=== PATIENT | female | born 1940 | race African-American/Black ===

== ENCOUNTER 2017-04-29 22:17 | Inpatient (IN) | payer MEDICARE, OTHER ==
[~2017-04-29] VITALS: Ht 172.7 cm; Wt 85.7 kg
--- NOTE | 2017-04-29 22:30 | NUR ---
INFORMED AMBULANCE TRANSPORT TEAM THAT ORIGINAL 5150 HOLD WAS NOT PRESENT. AMBULANCE TRANSPORT TEAM LEFT WITH PATIENT TO GET ORIGINAL 5150 HOLD WITH INFORMING ANY ER STAFF MEMBERS
--- NOTE | 2017-04-29 23:40 | NUR ---
AMBULANCE RETURNED WITH PATIENT AT THIS TIME.
--- NOTE | 2017-04-29 23:43 | NUR ---
AMBULANCE TRANSPORT TEAM BACK FROM [facility] WITH PATIENT AND ORIGINAL 5150 HOLD
[2017-04-30] MEDS ORDERED: CLON0.3T PO (00:01)
[2017-04-30] MEDS ORDERED: ALLO100T PO (00:01)
[2017-04-30] MEDS ORDERED: LINA5TAB PO (00:01)
[2017-04-30] MEDS ORDERED: LATA2.5D7 OP (00:01)
[2017-04-30] MEDS ORDERED: CHOL100045 PO (00:01)
[2017-04-30] MEDS ORDERED: HYDR100T27 PO (00:01)
[2017-04-30] MEDS ORDERED: TACR1CAP PO (00:01)
[2017-04-30] MEDS ORDERED: AMLO10TA2 PO (00:01)
[2017-04-30] MEDS ORDERED: QUET25TA PO (00:01)
[2017-04-30] MEDS ORDERED: ASPI-605 PO (00:01)
[2017-04-30] MEDS ORDERED: ENOX40DI SQ (00:01)
[2017-04-30] MEDS ORDERED: LABE300T PO (00:01)
[2017-04-30] MEDS ORDERED: LISI40TA4 PO (00:01)
--- NOTE | 2017-04-30 00:15 | NUR ---
MEDICALLY CLEARED BY DR BARROSO
[2017-04-30] MEDS ORDERED: MAG HYDROX/AL HYDROX/SIMETH 30 ML LIQUID UDC PO PRN (01:30)
[2017-04-30] MEDS ORDERED: LORAZEPAM 0.5 MG TABLET PO PRN (01:30)
[2017-04-30] MEDS ORDERED: TEMAZEPAM 7.5 MG CAPSULE PO PRN (01:30)
[2017-04-30] MEDS ORDERED: MAGNESIUM HYDROXIDE 30 ML LIQUID UDC PO PRN (01:30)
--- NOTE | 2017-04-30 01:30 | NUR ---
AT APPROX 0100 ADMITTED 76 YEAR OLD AA FEMALE TO [facility] ON A 5150 HOLD FOR GD. PATIENT LIVES WITH NIECE JUSTIN MCINTOSH, SHE WAS ADMITTED TO [facility] MED/SURG/TELE UNIT ON 04/25/17 DUE TO INCREASED PARANOID AND HALLUCINATION. SHE FEELS IF SOMEONE IS WATCHING HER 28/09. SHE THINKS THAT THERE ARE CAMERAS ALL AROUND HER HOME THAT ARE WATCHING HER. PATIENT WAS MEDICALLY CLEARED AT [facility]. HOLD STARTED ON 04/29/17 AT 1522 AND WILL END ON 05/02/17 AT 1522. PATIENT WAS NOTED A/O X 3. IN NO DISTRESS. SHE WAS CALM AND COOPERATIVE WITH ADMISSION PROCESS. SHE WAS ABLE TO SIGN ADMISSION PAPERS. SKIN WARM, DRY AND INTACT EXCEPT FOR SMALL CIRCULAR ECCHYMOSIS NOTED IN RIGHT ANTECUBITAL ARM. PATIENT PRESENTED WITH A SALINE LOCK LOCATED ON HER LEFT ARM, WHICH WAS REMOVED AT TIME OF ADMISSION. SHE ALSO PRESENTED WITH A SHUNT (AV GRAFT) LOCATED IN HER RIGHT UPPER ARM ANTERIOR ASPECT. IT WAS ALSO NOTED A WELL-HEALED SURGICAL SCAR ON HER RIGHT UPPER QUADRANT AND ANOTHER WELL-HEALED SCAR ON HER LEFT KNEE. PATIENT STARED THAT SHE IS UNABLE TO WALK DUE TO BILATERAL LEG WEAKNESS. PATIENT IS UNDER THE CARE OF DR. BRADSHAW AND DR. DELEON. WILL CONTINUE TO MONITOR CLOSELY.
[2017-04-30 01:51] VITALS: BP 150/66
[2017-04-30 04:25] VITALS: BP 150/66
--- NOTE | 2017-04-30 06:49 | NUR ---
PT SLEPT FOR APPROX 4.30 HRS THROUGH THE NIGHT. BGL WAS DONE, RESULTS 111. PATIENT HAD A SHOWER. SHE IS COMPLIANT WITH ADLs at this time.
[2017-04-30 07:30] VITALS: BP 179/60
--- NOTE | 2017-04-30 07:30 | NUR ---
PT RECEIVED IN BED AWAKE.PT IS [id number].NO C/O PAIN NOTED ,V/S ARE STABLE.BED ALARM ON
[2017-04-30 11:01] VITALS: BP 157/54
--- NOTE | 2017-04-30 14:56 | NUR ---
Firearms Report: Hydropress Operator completed and submitted [employer]arms Report on 04/30/17.
[2017-04-30] MEDS: AMLODIPINE 10 MG TABLET PO SCH (15:07)
[2017-04-30] MEDS: hydrALAZINE HCL 50 MG TABLET PO SCH ×2 (15:11→22:00)
--- NOTE | 2017-04-30 15:43 | NUR ---
Initial DC Plan: Patient currently lives at home with her niece Katrin [[address] [place] [address]; [phone]]. Katrin stated she would like patient to return home upon discharge. SW will follow up with MD, patient, and patient's niece to discuss most appropriate discharge plans. SW will form a safe and proper discharge.
[2017-04-30] MEDS: TACROLIMUS ANHYDROUS 1 MG CAPSULE PO SCH (16:25)
[2017-04-30] MEDS: CLONIDINE HCL 0.3 MG TABLET PO SCH ×2 (16:25→23:00)
[2017-04-30] MEDS: DIVALPROEX SPRINKLE 125 MG CAP.SPRINK PO SCH (20:10)
[2017-04-30] MEDS: LATANOPROST OPHT DROP 2.5 ML BOTTLE EACHEYE SCH (20:10)
[2017-04-30] MEDS: QUETIAPINE FUMARATE 25 MG TABLET PO SCH (20:10)
[2017-04-30 20:23] VITALS: BP 168/53
[2017-04-30 20:40] VITALS: BP 134/44
[2017-05-01] VITALS (7 sets, daily range): BP systolic 149–188; BP diastolic 52–66
[2017-05-01] MEDS: hydrALAZINE HCL 50 MG TABLET PO SCH ×3 (05:47→21:06)
--- NOTE | 2017-05-01 06:25 | NUR ---
GPS: PT SLEPT FOR APPROX 6.30 HRS THROUGH THE NIGHT. ASSISTED WITH ADL'S. B/P 178/62 HR 62,HYDRALAZINE PO GIVEN. WAS.COMPLIANT WITH ADLs. PLEASANT UPON APPROACH.NO AGITATION NOTED. CONTINUE MONITORING FOR SAFETY.
[2017-05-01] MEDS: CLONIDINE HCL 0.3 MG TABLET PO SCH ×4 (06:45→23:10)
[2017-05-01] MEDS: CHOLECALCIFEROL 1,000 UNIT TABLET PO SCH (08:41)
[2017-05-01] MEDS: DIVALPROEX SPRINKLE 125 MG CAP.SPRINK PO SCH ×2 (08:41→20:02)
[2017-05-01] MEDS: TACROLIMUS ANHYDROUS 1 MG CAPSULE PO SCH ×2 (08:41→16:54)
[2017-05-01] MEDS: ALLOPURINOL 100 MG TABLET PO SCH (08:41)
[2017-05-01] MEDS: LINAGLIPTIN 5 MG TABLET PO SCH (08:41)
[2017-05-01] MEDS: ASPIRIN EC 81 MG TABLET.DR PO SCH (08:42)
[2017-05-01] MEDS: LISINOPRIL 20 MG TABLET PO SCH (08:42)
[2017-05-01] MEDS: AMLODIPINE 10 MG TABLET PO SCH (08:42)
[2017-05-01] MEDS ORDERED: Medication Not On Formulary EA (Lisinopril 40 MG) PO SCH (09:00)
[2017-05-01] MEDS: ACETAMINOPHEN 325 MG TABLET PO PRN (15:13)
--- NOTE | 2017-05-01 18:25 | NUR ---
GPS/NSG PATIENT COMPLIANT WITH MEDICATION B/P LAST READING OF 174/60. TEMP OF 99.1 ADDRESSED WITH TYLENOL PRN WITH EFFECTIVE OUTCOME. TEMP AT 1700 99.0 TO BE ENDORSED FOR FOLLOW UP.
[2017-05-01] MEDS: LATANOPROST OPHT DROP 2.5 ML BOTTLE EACHEYE SCH (20:02)
[2017-05-01] MEDS: QUETIAPINE FUMARATE 25 MG TABLET PO SCH (20:02)
[2017-05-01] MEDS: LABETALOL HCL 200 MG TABLET PO SCH (23:30)
[2017-05-02] MEDS ORDERED: LABETALOL HCL 100 MG TABLET ONE ×3 (00:11→06:51)
[2017-05-02] MEDS: hydrALAZINE HCL 50 MG TABLET PO SCH ×3 (05:55→22:03)
--- NOTE | 2017-05-02 06:09 | NUR ---
GPS: REMAIN CALM AND COOPERATIVE WITH MEDICATIONS AND CARE. SLEPT 8:30 HRS THROUGH THE NIGHT.SHOWERED THIS MORNING. B/P 177/62 PULSE 64 HYDRALAZINE 100 MG PO GIVE. CONTINUE MONITORING FOR HIGH BLOOD PRESSURE AND SAFETY.NO BEHAVIOR PROBLEM NOTED.
[2017-05-02] MEDS: LABETALOL HCL 200 MG TABLET PO SCH ×3 (06:53→23:30)
[2017-05-02 07:30] VITALS: BP 164/59
[2017-05-02 08:09] LABS: BASOPHILS % (AUTO) 0.5 % (0.0-2.0); EOSINOPHILS # (AUTO) 0.1 K/uL (0.0-0.7); EOSINOPHILS % (AUTO) 1.5 % (0.0-7.0); HEMATOCRIT 34.8 % (31.2-41.9); HEMOGLOBIN 11.3 g/dL (10.9-14.3); LYMPHOCYTES # (AUTO) 0.9 K/uL (20.0-40.0); MEAN CORPUSCULAR HEMOGLOBIN 27.8 uug (24.7-32.8); MEAN CORPUSCULAR HGB CONC 33 g/dL (32.3-35.6); MEAN CORPUSCULAR VOLUME 85.6 fL (75.5-95.3); MONOCYTES # (AUTO) 0.7 K/uL (2.0-10.0); MONOCYTES % (AUTO) 9.7 % (0.0-11.0); NEUTROPHILS # (AUTO) 5.3 K/uL (1.8-8.9); NEUTROPHILS % (AUTO) 75.3 % (38.5-71.5); PLATELET COUNT (AUTO) 163 K/uL (179-408); RED BLOOD CELL COUNT(AUTO) 4.06 MIL/uL (3.63-4.92); WHITE BLOOD COUNT (AUTO) 7.1 K/uL (3.8-11.8)
[2017-05-02] MEDS: CLONIDINE HCL 0.3 MG TABLET PO SCH ×3 (08:16→23:30)
[2017-05-02] MEDS: DIVALPROEX SPRINKLE 125 MG CAP.SPRINK PO SCH ×2 (08:17→20:14)
[2017-05-02] MEDS: ALLOPURINOL 100 MG TABLET PO SCH (08:17)
[2017-05-02] MEDS: CHOLECALCIFEROL 1,000 UNIT TABLET PO SCH (08:17)
[2017-05-02] MEDS: ASPIRIN EC 81 MG TABLET.DR PO SCH (08:17)
[2017-05-02] MEDS: TACROLIMUS ANHYDROUS 1 MG CAPSULE PO SCH ×2 (08:18→16:22)
[2017-05-02] MEDS: LINAGLIPTIN 5 MG TABLET PO SCH (08:18)
[2017-05-02 08:20] LABS: THYROID STIMULATING HORMONE 3.682 mIU/mL (0.358-3.740)
[2017-05-02] MEDS: LISINOPRIL 20 MG TABLET PO SCH (08:25)
[2017-05-02] MEDS: AMLODIPINE 10 MG TABLET PO SCH (08:25)
[2017-05-02 08:42] LABS: ALANINE AMINOTRANSFERASE 23 U/L (14-59); ALKALINE PHOSPHATASE 72 U/L (50-136); ASPARTATE AMINOTRANSFERASE 17 U/L (15-37); BILIRUBIN,TOTAL 0.4 mg/dL (0.2-1.0); CARBON DIOXIDE 26 mmol/L (21-32); CHLORIDE 107 mmol/L (98-107); CHOLESTEROL 164 mg/dL (<200); CREATININE 1.3 mg/dL (0.6-1.3); GLUCOSE 120 mg/dL (74-106); HDL CHOLESTEROL 50 mg/dL (40-60); MAGNESIUM 2.3 mg/dL (1.8-2.4); PHOSPHOROUS 3.3 mg/dL (2.5-4.9); TOTAL PROTEIN, SERUM 6.9 g/dL (6.4-8.2); TRIGLYCERIDES 68 MG/DL (30-150); UREA NITROGEN, BLOOD 33 mg/dL (7-18)
[2017-05-02] MEDS: Z GUARD REMEDY PASTE 57 GM TUBE TOP SCH ×2 (13:43→20:14)
--- NOTE | 2017-05-02 14:12 | NUR ---
GPS RN NOTE: 1400: PER PATIENT, SHE ONLY WANTED TAKE HYDRALAZINE 75 MG THIS IS WHAT SHE WAS TAKING AT HOME. EXPLAINED TO PT THAT DR PRESCRIBED HER WITH 100MG OF HYDRALAZINE. PT KEPT INSISTING THAT SHE WILL ONLY TAKE 75 MGS HYDRALAZINE. CHARGE NURSE AWARE.
[2017-05-02 15:37] VITALS: BP 124/51
[2017-05-02] MEDS: LATANOPROST OPHT DROP 2.5 ML BOTTLE EACHEYE SCH (20:14)
[2017-05-02] MEDS: QUETIAPINE FUMARATE 25 MG TABLET PO SCH (20:14)
[2017-05-02 20:24] VITALS: BP 120/54
--- NOTE | 2017-05-03 | NUR ---
SCHEDULED 2330 LABETALOL HELD D/T DECREASED DIASTOLIC BP. Pt ASYMPTOMATIC FOR S/S OF HYPOTENSION.
[2017-05-03] MEDS: hydrALAZINE HCL 50 MG TABLET PO SCH ×3 (06:30→22:23)
[2017-05-03] MEDS: CLONIDINE HCL 0.3 MG TABLET PO SCH ×3 (07:01→23:15)
[2017-05-03 07:30] VITALS: BP 113/59
[2017-05-03] MEDS: LABETALOL HCL 200 MG TABLET PO SCH ×2 (07:30→15:30)
[2017-05-03] MEDS: Z GUARD REMEDY PASTE 57 GM TUBE TOP SCH ×2 (08:00→20:01)
[2017-05-03] MEDS: CHOLECALCIFEROL 1,000 UNIT TABLET PO SCH (08:00)
[2017-05-03] MEDS: LINAGLIPTIN 5 MG TABLET PO SCH (08:01)
[2017-05-03] MEDS: ALLOPURINOL 100 MG TABLET PO SCH (08:01)
[2017-05-03] MEDS: AMLODIPINE 10 MG TABLET PO SCH (08:01)
[2017-05-03] MEDS: TACROLIMUS ANHYDROUS 1 MG CAPSULE PO SCH ×2 (08:01→16:06)
[2017-05-03] MEDS: DIVALPROEX SPRINKLE 125 MG CAP.SPRINK PO SCH ×2 (08:01→20:01)
[2017-05-03] MEDS: ASPIRIN EC 81 MG TABLET.DR PO SCH (08:01)
[2017-05-03] MEDS: LISINOPRIL 20 MG TABLET PO SCH (08:02)
[2017-05-03 14:00] VITALS: BP 161/53
[2017-05-03 15:30] VITALS: BP 123/50
[2017-05-03] MEDS: ACETAMINOPHEN 325 MG TABLET PO PRN (19:42)
[2017-05-03 19:49] VITALS: BP 149/50
[2017-05-03] MEDS: LATANOPROST OPHT DROP 2.5 ML BOTTLE EACHEYE SCH (20:00)
[2017-05-03] MEDS: QUETIAPINE FUMARATE 25 MG TABLET PO SCH (20:01)
[2017-05-04] MEDS: LABETALOL HCL 200 MG TABLET PO SCH ×6 (00:17→23:49)
[2017-05-04 01:23] VITALS: BP 127/48
[2017-05-04] MEDS: hydrALAZINE HCL 50 MG TABLET PO SCH ×3 (06:20→22:00)
[2017-05-04] MEDS: CLONIDINE HCL 0.3 MG TABLET PO SCH ×3 (07:04→23:00)
[2017-05-04 08:17] VITALS: BP 131/49
[2017-05-04] MEDS: QUETIAPINE FUMARATE 25 MG TABLET PO SCH ×2 (08:31→20:45)
[2017-05-04] MEDS: AMLODIPINE 10 MG TABLET PO SCH (08:31)
[2017-05-04] MEDS: CHOLECALCIFEROL 1,000 UNIT TABLET PO SCH (08:32)
[2017-05-04] MEDS: DIVALPROEX SPRINKLE 125 MG CAP.SPRINK PO SCH ×2 (08:32→20:45)
[2017-05-04] MEDS: ASPIRIN EC 81 MG TABLET.DR PO SCH (08:32)
[2017-05-04] MEDS: TACROLIMUS ANHYDROUS 1 MG CAPSULE PO SCH ×2 (08:34→16:10)
[2017-05-04] MEDS: LINAGLIPTIN 5 MG TABLET PO SCH (08:34)
[2017-05-04] MEDS: Z GUARD REMEDY PASTE 57 GM TUBE TOP SCH ×2 (08:36→21:56)
[2017-05-04] MEDS: LISINOPRIL 20 MG TABLET PO SCH (08:38)
[2017-05-04] MEDS: ALLOPURINOL 100 MG TABLET PO SCH (08:38)
[2017-05-04 13:07] VITALS: BP 128/46
[2017-05-04 20:28] VITALS: BP 130/49
[2017-05-04] MEDS: LATANOPROST OPHT DROP 2.5 ML BOTTLE EACHEYE SCH (20:44)
--- NOTE | 2017-05-04 22:00 | NUR ---
RECEIVED PT IN HER ROOM. SHE WAS NOTED A/O X 3. PLEASANT AND COOPERATIVE. DEPRESSED MOOD, BLUNTED AFFECT. SHE IS COMPLIANT EITH MEDICATION REGIMENT. APRESOLINE 100MG WAS HELD DUE TO PT LOW BP: 56 BPM. WILL CONTINUE TO MONITOR.
--- NOTE | 2017-05-04 23:45 | NUR ---
PATIENT REFUSED CATAPRES 0.3MG PO; HOWEVER SHE TOOK LABETALOL. V/S STABLE AT THIS TIME. WILL CONTINUE TO MONITOR. NO S/S OF HYPERTENSION NOTED AT THIS TIME.
[2017-05-05] MEDS: hydrALAZINE HCL 50 MG TABLET PO SCH ×3 (05:55→22:40)
[2017-05-05] MEDS: CLONIDINE HCL 0.3 MG TABLET PO SCH ×3 (07:00→23:43)
[2017-05-05 07:30] VITALS: BP 142/51
[2017-05-05 07:31] LABS: BASOPHILS % (AUTO) 0.9 % (0.0-2.0); EOSINOPHILS # (AUTO) 0.1 K/uL (0.0-0.7); EOSINOPHILS % (AUTO) 2.3 % (0.0-7.0); HEMATOCRIT 31.7 % (31.2-41.9); HEMOGLOBIN 10.4 g/dL (10.9-14.3); LYMPHOCYTES % (AUTO) 20.8 % (20.5-51.5); MEAN CORPUSCULAR HEMOGLOBIN 27.8 uug (24.7-32.8); MEAN CORPUSCULAR HGB CONC 33 g/dL (32.3-35.6); MEAN CORPUSCULAR VOLUME 84.9 fL (75.5-95.3); MONOCYTES # (AUTO) 0.6 K/uL (2.0-10.0); MONOCYTES % (AUTO) 12.3 % (0.0-11.0); NEUTROPHILS # (AUTO) 3.1 K/uL (1.8-8.9); NEUTROPHILS % (AUTO) 63.7 % (38.5-71.5); PLATELET COUNT (AUTO) 162 K/uL (179-408); RED BLOOD CELL COUNT(AUTO) 3.74 MIL/uL (3.63-4.92); WHITE BLOOD COUNT (AUTO) 4.8 K/uL (3.8-11.8)
[2017-05-05 07:48] LABS: ALANINE AMINOTRANSFERASE 20 U/L (14-59); ALKALINE PHOSPHATASE 74 U/L (50-136); ASPARTATE AMINOTRANSFERASE 12 U/L (15-37); BILIRUBIN,TOTAL 0.4 mg/dL (0.2-1.0); CARBON DIOXIDE 24 mmol/L (21-32); CHLORIDE 107 mmol/L (98-107); CREATININE 1.4 mg/dL (0.6-1.3); GLUCOSE 98 mg/dL (74-106); POTASSIUM 5.1 mmol/L (3.5-5.1); TOTAL PROTEIN, SERUM 6.7 g/dL (6.4-8.2); UREA NITROGEN, BLOOD 37 mg/dL (7-18); VALPROIC ACID 34 ug/mL (50-100)
[2017-05-05] MEDS: ALLOPURINOL 100 MG TABLET PO SCH (08:09)
[2017-05-05] MEDS: AMLODIPINE 10 MG TABLET PO SCH (08:09)
[2017-05-05] MEDS: ASPIRIN EC 81 MG TABLET.DR PO SCH (08:09)
[2017-05-05] MEDS: CHOLECALCIFEROL 1,000 UNIT TABLET PO SCH (08:09)
[2017-05-05] MEDS: DIVALPROEX SPRINKLE 125 MG CAP.SPRINK PO SCH ×2 (08:09→20:52)
[2017-05-05] MEDS: LISINOPRIL 20 MG TABLET PO SCH (08:10)
[2017-05-05] MEDS: QUETIAPINE FUMARATE 25 MG TABLET PO SCH ×3 (08:10→20:53)
[2017-05-05] MEDS: LINAGLIPTIN 5 MG TABLET PO SCH (08:13)
[2017-05-05] MEDS: TACROLIMUS ANHYDROUS 1 MG CAPSULE PO SCH ×2 (08:13→17:01)
[2017-05-05] MEDS: Z GUARD REMEDY PASTE 57 GM TUBE TOP SCH ×2 (09:48→21:16)
[2017-05-05] MEDS: LABETALOL HCL 200 MG TABLET PO SCH ×2 (09:57→17:07)
[2017-05-05] MEDS ORDERED: PNEUMOCOCCAL 23-VAL P-SAC VAC 0.5 ML VIAL IM ONE (10:30)
[2017-05-05 15:53] VITALS: BP 143/58
[2017-05-05 20:00] VITALS: BP 130/49
[2017-05-05] MEDS: LATANOPROST OPHT DROP 2.5 ML BOTTLE EACHEYE SCH (20:53)
[2017-05-05 21:09] VITALS: BP 134/69
--- NOTE | 2017-05-05 21:25 | NUR ---
PATIENT RECEIVED IN BED AWAKE, PATIENT CALM , COOPERATIVE. PATIENT COMPLAINT WITH MEDICATION. PATIENT DENIES PARANOIA/DELUSIONS WILL CONTINUE TO MONITOR AND REDIRECT NEEDED. PATIENT HAS FLAT AFFECT. NO AGGRESSIVE OR COMBATIVE BEHAVIOR NOTED WILL CONTINUE TO MONITOR. BED IN LOWEST POSITION, BED LOCKED, AND BED ALARM ON WHILE IN BED.
[2017-05-06] MEDS: LABETALOL HCL 200 MG TABLET PO SCH ×4 (00:50→23:30)
[2017-05-06] MEDS: hydrALAZINE HCL 50 MG TABLET PO SCH ×3 (06:19→21:11)
[2017-05-06] MEDS: CLONIDINE HCL 0.3 MG TABLET PO SCH ×3 (07:00→22:42)
[2017-05-06 07:30] VITALS: BP 133/70
[2017-05-06 07:54] LABS: BASOPHILS # (AUTO) 0.1 K/uL (0.0-8.0); BASOPHILS % (AUTO) 1.1 % (0.0-2.0); EOSINOPHILS # (AUTO) 0.1 K/uL (0.0-0.7); EOSINOPHILS % (AUTO) 2.1 % (0.0-7.0); HEMATOCRIT 32.2 % (31.2-41.9); HEMOGLOBIN 10.4 g/dL (10.9-14.3); LYMPHOCYTES # (AUTO) 0.9 K/uL (20.0-40.0); LYMPHOCYTES % (AUTO) 17.9 % (20.5-51.5); MEAN CORPUSCULAR HEMOGLOBIN 27.3 uug (24.7-32.8); MEAN CORPUSCULAR HGB CONC 32 g/dL (32.3-35.6); MEAN CORPUSCULAR VOLUME 84.9 fL (75.5-95.3); MONOCYTES # (AUTO) 0.6 K/uL (2.0-10.0); MONOCYTES % (AUTO) 11.6 % (0.0-11.0); NEUTROPHILS # (AUTO) 3.4 K/uL (1.8-8.9); NEUTROPHILS % (AUTO) 67.3 % (38.5-71.5); PLATELET COUNT (AUTO) 144 K/uL (179-408)
[2017-05-06 08:10] LABS: ALANINE AMINOTRANSFERASE 20 U/L (14-59); ALKALINE PHOSPHATASE 73 U/L (50-136); ASPARTATE AMINOTRANSFERASE 17 U/L (15-37); BILIRUBIN,TOTAL 0.4 mg/dL (0.2-1.0); CARBON DIOXIDE 25 mmol/L (21-32); CHLORIDE 105 mmol/L (98-107); CREATININE 1.4 mg/dL (0.6-1.3); GLUCOSE 116 mg/dL (74-106); POTASSIUM 5.5 mmol/L (3.5-5.1); TOTAL PROTEIN, SERUM 6.6 g/dL (6.4-8.2); UREA NITROGEN, BLOOD 34 mg/dL (7-18); VALPROIC ACID 31 ug/mL (50-100)
[2017-05-06] MEDS: ALLOPURINOL 100 MG TABLET PO SCH (09:21)
[2017-05-06] MEDS: ASPIRIN EC 81 MG TABLET.DR PO SCH (09:21)
[2017-05-06] MEDS: QUETIAPINE FUMARATE 25 MG TABLET PO SCH ×3 (09:23→20:15)
[2017-05-06] MEDS: CHOLECALCIFEROL 1,000 UNIT TABLET PO SCH (09:24)
[2017-05-06] MEDS: DIVALPROEX SPRINKLE 125 MG CAP.SPRINK PO SCH ×2 (09:24→20:14)
[2017-05-06] MEDS: TACROLIMUS ANHYDROUS 1 MG CAPSULE PO SCH ×2 (09:26→17:42)
[2017-05-06] MEDS: LISINOPRIL 20 MG TABLET PO SCH (09:28)
[2017-05-06] MEDS: AMLODIPINE 10 MG TABLET PO SCH (09:28)
[2017-05-06] MEDS: Z GUARD REMEDY PASTE 57 GM TUBE TOP SCH ×2 (09:29→20:15)
[2017-05-06] MEDS: LINAGLIPTIN 5 MG TABLET PO SCH (09:29)
[2017-05-06 15:36] VITALS: BP 147/53
--- NOTE | 2017-05-06 18:27 | NUR ---
[address] Frances regarding patient potassium level elevated 5.5 , spoke with MD with order for CMP in am-carried out.
[2017-05-06] MEDS: LATANOPROST OPHT DROP 2.5 ML BOTTLE EACHEYE SCH (20:15)
[2017-05-06 20:25] VITALS: BP 120/53
--- NOTE | 2017-05-06 21:00 | NUR ---
RECEIVED PT'S A/A/O X3;ON BED REST COMFORTABLY,DENIED OF PAIN.PT'S COOPERATIVE W/ASSISTANCE AND COMPLAINT W/MEDICATION.PT HAD HX OF ESRD W/RT.RENAL TRANSPLANT;ASSISTED FOR PM CARE,CHANGED DIAPER DUE TO URINATION.PROVIDED COMFORT.GAVE SNACK TO PT AT THIS TIME;PT TOLERATED WELL.SAFETY REINFORCE.BED ALARM'S ON.
[2017-05-07] MEDS: hydrALAZINE HCL 50 MG TABLET PO SCH ×3 (05:48→22:00)
--- NOTE | 2017-05-07 06:30 | NUR ---
PT'S COOPERATIVE W/ASSISTANCE AND COMPLY W/MEDICATION INCLUDING CARE,SLEPT ON/OFF FOR 6 HOURS AT NIGHT.NO DISTRESS NOTED.THIS MORNING ASSISTED PT FOR A SHOWER REQUEST.SAFETY RENDER.
[2017-05-07] MEDS: CLONIDINE HCL 0.3 MG TABLET PO SCH ×3 (07:00→23:00)
[2017-05-07 07:30] VITALS: BP 131/46
[2017-05-07 07:34] LABS: ALANINE AMINOTRANSFERASE 19 U/L (14-59); ALKALINE PHOSPHATASE 77 U/L (50-136); ASPARTATE AMINOTRANSFERASE 17 U/L (15-37); BILIRUBIN,TOTAL 0.4 mg/dL (0.2-1.0); CARBON DIOXIDE 23 mmol/L (21-32); CHLORIDE 103 mmol/L (98-107); CREATININE 1.4 mg/dL (0.6-1.3); GLUCOSE 95 mg/dL (74-106); POTASSIUM 5.7 mmol/L (3.5-5.1); UREA NITROGEN, BLOOD 34 mg/dL (7-18)
--- NOTE | 2017-05-07 07:47 | NUR ---
RECEIVED PT'S A/A/O X3;ON BED REST COMFORTABLY,DENIED OF PAIN.PT'S COOPERATIVE W/ASSISTANCE AND COMPLAINT W/MEDICATION.ASSISTED FOR CARE,.GAVE SNACK TO PT AT THIS TIME;PT TOLERATED WELL.SAFETY REINFORCE.BED ALARM'S ON
[2017-05-07] MEDS: ALLOPURINOL 100 MG TABLET PO SCH (08:14)
[2017-05-07] MEDS: ASPIRIN EC 81 MG TABLET.DR PO SCH (08:15)
[2017-05-07] MEDS: DIVALPROEX SPRINKLE 125 MG CAP.SPRINK PO SCH ×2 (08:15→20:01)
[2017-05-07] MEDS: AMLODIPINE 10 MG TABLET PO SCH (08:15)
[2017-05-07] MEDS: LISINOPRIL 20 MG TABLET PO SCH (08:15)
[2017-05-07] MEDS: LINAGLIPTIN 5 MG TABLET PO SCH (08:16)
[2017-05-07] MEDS: QUETIAPINE FUMARATE 25 MG TABLET PO SCH ×3 (08:16→20:02)
[2017-05-07] MEDS: TACROLIMUS ANHYDROUS 1 MG CAPSULE PO SCH ×2 (08:16→16:24)
[2017-05-07] MEDS: CHOLECALCIFEROL 1,000 UNIT TABLET PO SCH (08:16)
[2017-05-07] MEDS: LABETALOL HCL 200 MG TABLET PO SCH ×3 (08:20→23:01)
[2017-05-07] MEDS: Z GUARD REMEDY PASTE 57 GM TUBE TOP SCH ×2 (08:54→20:01)
--- NOTE | 2017-05-07 10:00 | NUR ---
PT SEEN BY DR JOE DR NOTIFIED FOR PT LAB POTASSIUM IS 5.7 AND HER BUN IS 34 AND CREATININE 1.4
[2017-05-07] MEDS: DIVALPROEX 250 MG TABLET.DR PO SCH (12:20)
[2017-05-07 15:00] VITALS: BP 103/50
--- NOTE | 2017-05-07 17:28 | NUR ---
NOTIFIED AGAIN ABOUT THE POTASSIUM AND BUN ELEVATED NO NEW ORDERS RECEIVED
[2017-05-07] MEDS: ACETAMINOPHEN 325 MG TABLET PO PRN (19:41)
--- NOTE | 2017-05-07 19:42 | NUR ---
GPS: PATIENT C/O RIGHT KNEE PAIN. TYLENOL 650 MG PO GIVEN.
[2017-05-07] MEDS: LATANOPROST OPHT DROP 2.5 ML BOTTLE EACHEYE SCH (20:02)
--- NOTE | 2017-05-07 20:45 | NUR ---
GPS: PATIENT STATED I AM FEELING BETTER NOW. PRN FOR PAIN EFFECTIVE.
[2017-05-07 21:33] VITALS: BP 138/51
[2017-05-08 05:30] VITALS: BP 154/58
[2017-05-08] MEDS: hydrALAZINE HCL 50 MG TABLET PO SCH ×3 (05:30→22:23)
--- NOTE | 2017-05-08 06:02 | NUR ---
GPS: REMAIN CALM AND COOPERATIVE. B/P 154/58 ,HR 60 THIS MORNING. HYDRALAZINE 100 MG PO GIVEN. PLEASANT UPON APPROACH. SLEPT 08:30 HRS THROUGH THE NIGHT.ASSISTED WITH ADL'S. CONTINUE PLAN OF CARE.
[2017-05-08] MEDS: LABETALOL HCL 200 MG TABLET PO SCH ×3 (06:36→23:58)
[2017-05-08] MEDS: CLONIDINE HCL 0.3 MG TABLET PO SCH ×3 (06:38→23:29)
[2017-05-08 07:30] VITALS: BP 124/50
[2017-05-08] MEDS: ASPIRIN EC 81 MG TABLET.DR PO SCH (08:56)
[2017-05-08] MEDS: ALLOPURINOL 100 MG TABLET PO SCH (08:56)
[2017-05-08] MEDS: QUETIAPINE FUMARATE 25 MG TABLET PO SCH ×3 (08:56→20:15)
[2017-05-08] MEDS: CHOLECALCIFEROL 1,000 UNIT TABLET PO SCH (08:56)
[2017-05-08] MEDS: DIVALPROEX SPRINKLE 125 MG CAP.SPRINK PO SCH ×2 (08:56→20:15)
[2017-05-08] MEDS: LINAGLIPTIN 5 MG TABLET PO SCH (08:57)
[2017-05-08] MEDS: LISINOPRIL 20 MG TABLET PO SCH (08:59)
[2017-05-08] MEDS: AMLODIPINE 10 MG TABLET PO SCH (09:00)
[2017-05-08] MEDS: TACROLIMUS ANHYDROUS 1 MG CAPSULE PO SCH ×2 (09:16→17:40)
[2017-05-08] MEDS: Z GUARD REMEDY PASTE 57 GM TUBE TOP SCH ×2 (09:17→20:16)
--- NOTE | 2017-05-08 12:43 | NUR ---
PATIENT IS GETTING AGITATED AND ANXIOUS MEDICATED WITH ATIVAN ORDERED MADE COMFORTABLE AND WILL CONTINUE TO OBSERVE.
[2017-05-08] MEDS: DIVALPROEX 250 MG TABLET.DR PO SCH (13:10)
--- NOTE | 2017-05-08 13:51 | NUR ---
NEW ORDERS FOR KAEXALATE AND LABS RECEIVED AND NOTED
[2017-05-08] MEDS ORDERED: SODIUM POLYSTYRENE SULFONATE 15 G/60 ML LIQUID UDC PO ONE (14:00)
--- NOTE | 2017-05-08 14:00 | NUR ---
PATIENTS DIAPER CHANGED AND SHE IS REPOSITIONED EVERY TWO HOURS BUT PATIENT STATED THAT SHE WANTS TO BE CHANGED CHECKED BUT THERE WAS NO URINE REASSURED HER THAT WE WILL CHANGE HER EVERY 2 HOURS.
[2017-05-08 15:00] VITALS: BP 136/52
--- NOTE | 2017-05-08 18:00 | NUR ---
WE HAVE CONTINUED TO CHANGE PATIENT EVERY TWO HOURS AND AT TIMES MORE OFTEN IF SHE REQUEST FOR IT BUT SHE SEEMS TO BE FORGETING WHEN SHE WAS CHANGED LAST PATIENT REASSURED THAT WE WILL BE CHANGING HER EVERY 2HOURS AND SHE EXPRESSED UNDERSTANDING.
[2017-05-08] MEDS: LATANOPROST OPHT DROP 2.5 ML BOTTLE EACHEYE SCH (20:15)
[2017-05-08 20:22] VITALS: BP 135/53
[2017-05-09] MEDS: hydrALAZINE HCL 50 MG TABLET PO SCH ×3 (05:34→22:17)
[2017-05-09] MEDS: CLONIDINE HCL 0.3 MG TABLET PO SCH ×3 (06:37→22:48)
--- NOTE | 2017-05-09 06:39 | NUR ---
GPS: REMAIN CALM AND COOPERATIVE WITH MEDICATIONS AND CARE. ASSISTED WITH SHOWER THIS MORNING.SLEPT 7:30 HRS THROUGH THE NIGHT. NO BEHAVIOR PROBLEM NOTED. NO C/O PAIN OR DISCOMFORT AT THIS TIME.
[2017-05-09 06:55] LABS: BASOPHILS % (AUTO) 0.9 % (0.0-2.0); EOSINOPHILS # (AUTO) 0.1 K/uL (0.0-0.7); EOSINOPHILS % (AUTO) 2.4 % (0.0-7.0); HEMATOCRIT 30.6 % (31.2-41.9); LYMPHOCYTES % (AUTO) 25.1 % (20.5-51.5); MEAN CORPUSCULAR HEMOGLOBIN 27.4 uug (24.7-32.8); MEAN CORPUSCULAR HGB CONC 33 g/dL (32.3-35.6); MEAN CORPUSCULAR VOLUME 84.1 fL (75.5-95.3); MONOCYTES # (AUTO) 0.5 K/uL (2.0-10.0); MONOCYTES % (AUTO) 13.3 % (0.0-11.0); NEUTROPHILS # (AUTO) 2.2 K/uL (1.8-8.9); NEUTROPHILS % (AUTO) 58.3 % (38.5-71.5); PLATELET COUNT (AUTO) 141 K/uL (179-408); RED BLOOD CELL COUNT(AUTO) 3.64 MIL/uL (3.63-4.92); WHITE BLOOD COUNT (AUTO) 3.8 K/uL (3.8-11.8)
[2017-05-09 07:06] LABS: ALANINE AMINOTRANSFERASE 18 U/L (14-59); ALKALINE PHOSPHATASE 75 U/L (50-136); ASPARTATE AMINOTRANSFERASE 16 U/L (15-37); BILIRUBIN,TOTAL 0.3 mg/dL (0.2-1.0); CARBON DIOXIDE 28 mmol/L (21-32); CHLORIDE 103 mmol/L (98-107); CREATININE 1.3 mg/dL (0.6-1.3); GLUCOSE 82 mg/dL (74-106); TOTAL PROTEIN, SERUM 6.4 g/dL (6.4-8.2); UREA NITROGEN, BLOOD 34 mg/dL (7-18); VALPROIC ACID 48 ug/mL (50-100)
[2017-05-09] MEDS: LABETALOL HCL 200 MG TABLET PO SCH ×3 (07:23→23:50)
[2017-05-09 08:00] VITALS: BP 123/48
[2017-05-09] MEDS: ALLOPURINOL 100 MG TABLET PO SCH (08:22)
[2017-05-09] MEDS: QUETIAPINE FUMARATE 25 MG TABLET PO SCH ×3 (08:22→20:20)
[2017-05-09] MEDS: ASPIRIN EC 81 MG TABLET.DR PO SCH (08:22)
[2017-05-09] MEDS: DIVALPROEX SPRINKLE 125 MG CAP.SPRINK PO SCH ×2 (08:23→20:20)
[2017-05-09] MEDS: LISINOPRIL 20 MG TABLET PO SCH (08:23)
[2017-05-09] MEDS: CHOLECALCIFEROL 1,000 UNIT TABLET PO SCH (08:23)
[2017-05-09] MEDS: AMLODIPINE 10 MG TABLET PO SCH (08:23)
[2017-05-09] MEDS: LINAGLIPTIN 5 MG TABLET PO SCH (08:24)
[2017-05-09] MEDS: TACROLIMUS ANHYDROUS 1 MG CAPSULE PO SCH ×2 (08:24→16:50)
[2017-05-09] MEDS: Z GUARD REMEDY PASTE 57 GM TUBE TOP SCH ×2 (08:25→20:21)
[2017-05-09] MEDS: DIVALPROEX 250 MG TABLET.DR PO SCH (12:32)
[2017-05-09 12:34] LABS: MAGNESIUM 2.5 mg/dL (1.8-2.4); PHOSPHOROUS 4.1 mg/dL (2.5-4.9)
[2017-05-09 15:34] VITALS: BP 123/45
--- NOTE | 2017-05-09 17:30 | NUR ---
COMPLIANT WITH MEDICATIONS AND CARE WILL CONTINUE TO PROVIDE SAFE AND THERAPEUTIC ENVIRONMENT AT ALL TIMES
[2017-05-09 20:00] VITALS: BP 123/48
[2017-05-09] MEDS: LATANOPROST OPHT DROP 2.5 ML BOTTLE EACHEYE SCH (20:23)
[2017-05-10] MEDS: hydrALAZINE HCL 50 MG TABLET PO SCH ×3 (05:50→22:12)
[2017-05-10 06:00] VITALS: BP 175/55
--- NOTE | 2017-05-10 06:12 | NUR ---
GPS: REMAIN CALM AND COOPERATIVE WITH MEDICATIONS AND CARE.SLEPT 6 HRS THROUGH THE NIGHT.ASSISTED WITH ADL'S. NO C/O PAIN OR DISCOMFORT AT THIS TIME.
[2017-05-10] MEDS: CLONIDINE HCL 0.3 MG TABLET PO SCH ×3 (06:52→23:07)
[2017-05-10 06:57] VITALS: BP 159/51
[2017-05-10 07:30] VITALS: BP 182/57
[2017-05-10] MEDS: LABETALOL HCL 200 MG TABLET PO SCH ×3 (08:08→23:44)
[2017-05-10] MEDS: ASPIRIN EC 81 MG TABLET.DR PO SCH (09:44)
[2017-05-10] MEDS: DIVALPROEX SPRINKLE 125 MG CAP.SPRINK PO SCH ×2 (09:44→20:03)
[2017-05-10] MEDS: AMLODIPINE 10 MG TABLET PO SCH (09:45)
[2017-05-10] MEDS: LISINOPRIL 20 MG TABLET PO SCH (09:45)
[2017-05-10] MEDS: TACROLIMUS ANHYDROUS 1 MG CAPSULE PO SCH ×2 (09:46→17:27)
[2017-05-10] MEDS: ALLOPURINOL 100 MG TABLET PO SCH (09:49)
[2017-05-10] MEDS: LINAGLIPTIN 5 MG TABLET PO SCH (09:49)
[2017-05-10] MEDS: CHOLECALCIFEROL 1,000 UNIT TABLET PO SCH (09:49)
[2017-05-10] MEDS: QUETIAPINE FUMARATE 25 MG TABLET PO SCH ×3 (09:49→20:03)
[2017-05-10] MEDS: Z GUARD REMEDY PASTE 57 GM TUBE TOP SCH ×2 (09:50→20:04)
[2017-05-10] MEDS: DIVALPROEX 250 MG TABLET.DR PO SCH (13:00)
[2017-05-10 15:07] VITALS: BP 126/45
[2017-05-10 20:00] VITALS: BP 150/53
[2017-05-10] MEDS: LATANOPROST OPHT DROP 2.5 ML BOTTLE EACHEYE SCH (20:05)
[2017-05-10 22:11] VITALS: BP 148/55
[2017-05-11] MEDS: hydrALAZINE HCL 50 MG TABLET PO SCH ×2 (06:12→14:00)
--- NOTE | 2017-05-11 06:38 | NUR ---
GPS: REMAIN CALM AND COOPERATIVE WITH MEDICATIONS AND CARE. ASSISTED WITH SHOWER THIS MORNING.SLEPT 6 HRS THROUGH THE NIGHT. SHOWERED THIS MORNING.NO BEHAVIOR PROBLEM NOTED. NO C/O PAIN OR DISCOMFORT AT THIS TIME.
[2017-05-11] MEDS: CLONIDINE HCL 0.3 MG TABLET PO SCH (06:55)
[2017-05-11 07:30] VITALS: BP 139/51
--- NOTE | 2017-05-11 08:38 | NUR ---
DC Note: Patient will be discharged to [facility] [[address], [place] [address]; ] via ambulance at 11am. SW spoke with Danial at [facility] to confirm discharge plans. Patient is aware and agreeable to discharge plans. Patient's caroline Camacho [[phone]] is aware and agreeable to discharge plans. Patient will follow up with Dr. Whitman (Cutter Head Sharpener) and Dr. Churchill (Psychiatrist).
[2017-05-11] MEDS: AMLODIPINE 10 MG TABLET PO SCH (09:29)
[2017-05-11] MEDS: Z GUARD REMEDY PASTE 57 GM TUBE TOP SCH (09:29)
[2017-05-11] MEDS: DIVALPROEX SPRINKLE 125 MG CAP.SPRINK PO SCH (09:29)
[2017-05-11 09:30] VITALS: BP 139/51
[2017-05-11] MEDS: LISINOPRIL 20 MG TABLET PO SCH (09:30)
[2017-05-11] MEDS: LABETALOL HCL 200 MG TABLET PO SCH (09:30)
[2017-05-11] MEDS: LINAGLIPTIN 5 MG TABLET PO SCH (09:31)
[2017-05-11] MEDS: ALLOPURINOL 100 MG TABLET PO SCH (09:31)
[2017-05-11] MEDS: TACROLIMUS ANHYDROUS 1 MG CAPSULE PO SCH (09:31)
[2017-05-11] MEDS: ASPIRIN EC 81 MG TABLET.DR PO SCH (09:31)
[2017-05-11] MEDS: QUETIAPINE FUMARATE 25 MG TABLET PO SCH ×2 (09:31→13:05)
[2017-05-11] MEDS: CHOLECALCIFEROL 1,000 UNIT TABLET PO SCH (09:32)
--- NOTE | 2017-05-11 11:11 | NUR ---
report given to Blu BARRAZA at [facility] IN [place] AT [address] VIA AMBULANCE AT 1100 AM SCHEDULED TRANSPORT, MINIATURE MODEL MAKER WILL BE CHANGED TO 1400PM PER CHARGE NURSE. PATIENT S STANISLAW HALL IS AWARE OT TRANSFER .
[2017-05-11] MEDS: DIVALPROEX 250 MG TABLET.DR PO SCH (13:04)
--- NOTE | 2017-05-11 14:22 | NUR ---
PATIENT D/CD AND TRANSFERRED TO [facility] via ambulance in no acute distress or c/o pain b/p 125/53 hr at 53 asymptomatic . P PATIENT LEFT WITH ALL BELONGINGS AND FAMILY AWARE OF TRANSFER.
== END 2017-05-11 14:00 | DRG 885 ==
LOC: ER 22:18 → GPS 04-30 00:26
PROVIDERS: ADMIT Psychiatry & Neurology Psychosomatic Medicine; ATTEND Internal Medicine
DX: F39 Unspecified mood [affective] disorder (principal); D69.6 Thrombocytopenia, unspecified; E87.5 Hyperkalemia; E83.41 Hypermagnesemia; E87.1 Hypo-osmolality and hyponatremia; E83.51 Hypocalcemia; Z94.0 Kidney transplant status; Z96.652 Presence of left artificial knee joint; Z79.82 Long term (current) use of aspirin; Z79.899 Other long term (current) drug therapy; E66.9 Obesity, unspecified; Z68.28 Body mass index [BMI] 28.0-28.9, adult; D64.9 Anemia, unspecified; G31.9 Degenerative disease of nervous system, unspecified; E11.9 Type 2 diabetes mellitus without complications; N28.9 Disorder of kidney and ureter, unspecified; I10 Essential (primary) hypertension; Z79.84 Long term (current) use of oral hypoglycemic drugs
CPT/HCPCS: 36415; 80164; 83735; 84100; 84443; 85025; 90732; 97110; 97116; 97530; A4663; J3490; J7507; J8499